=== PATIENT | female | born 1995 | race Caucasian/White ===

== ENCOUNTER 2019-10-08 22:24 | Emergency (ER) | payer OTHER ==
[~2019-10-08] VITALS: Ht 167.6 cm; Wt 65.8 kg
[2019-10-08 22:25] VITALS: BP 151/95
[2019-10-08] MEDS ORDERED: SODIUM CHLORIDE FLUSH 10 ML SYR IVF ONE (23:55)
[2019-10-09 00:30] LABS: HEMATOCRIT 44.2 % (36-48); HEMOGLOBIN 14.9 g/dL (12.0-16.0); MEAN CORPUSCULAR HEMOGLOBIN 30 pg (27-31); MEAN CORPUSCULAR HGB CONC 34 g/dL (33-37); MEAN CORPUSCULAR VOLUME 87.7 fL (80-94); PLATELET COUNT (AUTO) 319 K/uL (140-450); RED BLOOD CELL COUNT(AUTO) 5.04 MIL/uL (4.20-5.40); RED CELL DISTRIBUTION WIDTH 13.1 % (11.6-13.7); WHITE BLOOD COUNT (AUTO) 16.4 K/uL (4.8-10.8)
[2019-10-09 00:46] LABS: ANION GAP 18.7 (8-16); CARBON DIOXIDE 22.6 mmol/L (21-32); CHLORIDE 100 mmol/L (98-107); CREATININE 0.8 mg/dL (0.6-1.3); GFR ARICAN-AMERICAN 114 mL/min (>90); GLUCOSE 113 mg/dL (74-106); POTASSIUM 3.3 mmol/L (3.5-5.1); SODIUM SERUM 138 mmol/L (136-145); UREA NITROGEN, BLOOD 6 mg/dL (7-18)
[2019-10-09 00:47] LABS: LYMPHOCYTES % (MANUAL) 5 % (20-46); MONOCYTES % (MANUAL) 4 % (5-12)
[2019-10-09 00:52] LABS: ALBUMIN 5.5 g/dL (3.4-5.0); ASPARTATE AMINOTRANSFERASE 27 U/L (15-37); TOTAL BILIRUBIN 0.9 mg/dL (0.0-1.0)
[2019-10-09 00:53] LABS: ACETAMINOPHEN < 0.5 ug/ml (10-30); SALICYLATE < 2.8 mg/dL (2.8-20.0)
[2019-10-09 01:23] VITALS: BP 140/80
[2019-10-09 01:46] LABS: BARBITURATE, URINE NEGATIVE ng/ml (NEG <=200)
[2019-10-09 01:47] LABS: BENZODIAZEPINE, URINE NEGATIVE ng/mL (NEG <=200); CANNABINOID, URINE POSITIVE ng/mL (NEG <=50); COCAINE, URINE NEGATIVE ng/mL (NEG <=300); OPIATE, URINE NEGATIVE ng/mL (NEG <=2000); PHENCYCLIDINE SCREEN,URINE NEGATIVE ng/mL (NEG <=25)
== END 2019-10-09 00:23 | disposition short-term general hospital (02) ==
LOC: MED 22:24
DX: I63.9 Cerebral infarction, unspecified (principal); F12.90 Cannabis use, unspecified, uncomplicated
CPT/HCPCS: 36415; 70450; 80053; 80305; 81025; 85025; 93005; 99284; G0480; G0482